=== PATIENT | male | born 1940 | race Caucasian/White ===

== ENCOUNTER → 2019-02-26 08:56 | Outpatient (CLI) | payer MEDICARE ==
--- NOTE | 2019-02-27 13:29 | EC ---
PATIENT:SANA BRYAN DATE OF SERVICE: 02/26/19 SEX: M MEDICAL RECORD: [id number] DATE OF : 36 LOCATION:[facility] AGE OF PATIENT: 78 ADMISSION DATE: 02/26/19 REFERRING PHYSICIAN: INTERPRETING PHYSICIAN: MELANIE CHAPA MD ECHOCARDIOGRAM REPORT ECHO CHARGES 4 ECHO COMPLETE Date: 02/26/19 CLINICAL DIAGNOSIS: MR H/O HTN/CAD/A-FIB ECHOCARDIOGRAPHIC MEASUREMENTS (adult normal given) AC root (d.<3.7cm) 2.8 cm LV Septum d (<1.2 cm> 0.8 cm Valve Excursion 2.0 cm LV Septum (systole) 1.7 cm Left Atria (s.<4.0cm> 5.8 cm LVPW d(<1.2cm) 1.2 cm RV (d.<2.3cm) 2.3 cm LVPW (sytole) 1.8 cm LV diastole(<5.6CM) 5.9 cm MV E-F(>70mm/sec) cm LV systole 3.4 cm LVOT Diameter 1.9 cm MV exc.(>10mm) cm Est.ejection fraction (50-75%) % DOPPLER: LVIT cm/sec A 77.0 cm/sec E 114 cm/sec LA cm/sec RVSP 21.0 mmHg LVOT 140 cm/sec AOP1/2T m/s Asc. Ao 212 cm/sec RVOT 82.0 cm/sec RA cm/sec PA 143 cm/sec AV Gradient Peak 18.0 mmHg AV Mean 8.8 mmHg AV Area 1.8 cm MV Gradient Peak 6.1 mmHg MV Mean 1.8 mmHg MV Area cm COMMENTS: OP - HC Superintendent [employer]: 1 YANETH ANJALI Supervisor [employer] Emulsifiers: 1 Dr. Chapa TAPE# PACS Pericardial Effusion N DATE OF SERVICE: ECHOCARDIOGRAM FINDINGS: 1. Left ventricular chamber size is mildly dilated. Left ventricular systolic function lower limits of normal to mildly reduced at 45% to 50%. 2. Left atrium is enlarged at 5.8 cm. Right atrium and right ventricular chamber sizes are as well mildly dilated. 3. Valvular structures have normal structure and motion. ECHOCARDIOGRAM REPORT [id number] SANA BRYAN 4. Doppler interrogation reveals mild mitral regurgitation, mild tricuspid regurgitation, no other valvular insufficiency or stenosis. Pulmonary systolic pressure is estimated at 21 mmHg. 5. No evidence of pericardial effusion or left ventricular thrombus. TRANSINT:[id number] Voice Confirmation ID: [id number] DOCUMENT ID: [id number] MELANIE CHAPA MD at 1329 CC: [id number] DICTATION DATE: 02/26/19 1415 ULTRASOUND TECHNOLOGIST: 02/26/19 1423 DEP CLI 02/26/19 [place] [id number] [place] [id number]
== END | disposition home or self-care (01) ==
LOC: D.HCCECHO 08:56
PROVIDERS: ATTEND Internal Medicine Interventional Cardiology
DX: I34.0 Nonrheumatic mitral (valve) insufficiency (principal)